=== PATIENT | male | born 1955 | race Caucasian/White ===

== ENCOUNTER 2019-09-07 10:40 | Outpatient (CLI) | payer OTHER ==
--- NOTE | 2019-09-07 12:24 | CT ---
CT HEART WITHOUT CONTRAST FOR CALCIUM SCORING: Date: 09/07/2019 INDICATION: Hypercholesterolemia. TECHNIQUE: Multiple thin axial tomograms were obtained through the heart without contrast. FINDINGS: No discernible coronary artery calcium identified. Total calcium score: 0 Soft Tissues: No evidence of mediastinal adenopathy. The thoracic aorta is normal caliber. The visualized osseous structures are unremarkable. The visualized lungs appear clear. IMPRESSION: Coronary calcium score of 0. This indicates very low risk of coronary artery disease. POS: AH
== END 2019-09-07 10:41 | disposition home or self-care (01) ==
LOC: BICCT 10:40
PROVIDERS: ATTEND Family Medicine
DX: Z13.6 Encounter for screening for cardiovascular disorders (principal); E78.00 Pure hypercholesterolemia, unspecified
CPT/HCPCS: 75571